=== PATIENT | male | born 1975 | race Caucasian/White ===

== ENCOUNTER 2017-11-15 08:08 | Emergency (ER) | payer BC, SELFPAY ==
[2017-11-15 08:09] VITALS: BP 132/92; PULSE 65; RESP 20; TEMP 36.8; O2SAT 100; BMI 26.6
--- NOTE | 2017-11-15 08:19 | CT_ITS ---
STUDY: CT ABDOMEN AND PELVIS WITHOUT CONTRAST REASON FOR EXAM: Male, 42 years old. LT FLANK PAIN, SUDDEN ONSET, NAUSEA. RADIATION DOSAGE (If Supplied By Facility): CTDIvol = ( 10.79 ) mGy, DLP = ( 555.39 ) mGycm TECHNIQUE: Transaxial images were obtained from the dome of the diaphragm to the symphysis pubis without oral contrast, and without intravenous contrast. Sagittal and coronal images were reconstructed. Individualized dose optimization techniques were used for this CT. COMPARISON: March 22, 2015 FINDINGS: The visualized lung bases are unremarkable. The visualized portions of the heart are within normal limits. Normal liver. The gallbladder is contracted. Normal spleen. Normal pancreas. Normal bilateral adrenal glands. There are up to 3 mm nonobstructing kidney stones on the right. There is mild hydroureteronephrosis on the left. There is a 5 mm calculus at the proximal ureter (axial image #94 series 2). There is 2 mm calculus at the lower pole of the left kidney as well. Normal visualized stomach. Normal small intestine. Normal colon. The appendix is visualized and appears normal. Normal abdominal aorta. Normal inferior vena cava. Normal retroperitoneum. Normal urinary bladder. Normal abdominal wall. Normal osseous structures. CT/Abdomen/Pelvis without Cont IMPRESSION: 5 mm proximal ureteral calculus with mild hydroureteronephrosis on the left. Small bilateral renal calculi. Electronically Signed: Ashly Allen MD at 9:54 EDT Tel , Service support ,
--- NOTE | 2017-11-15 08:19 | ED.VISSUMM ---
- ER Visit Summary Date of Service: 11/15/17 Chief Complaint: Left flank pain History of Present Illness: The patient is a 42 M who states that he was in his normal state of health when he went to work today. He was sitting down began to have a pain in his left flank. He thought it was perhaps a muscle. He felt the urge to have a bowel movement thought it might help. However the pain got worse is now starting to wrap around towards his front. He has a history of a kidney stone in the past which he was able to pass on his own. Denies any hematuria. No fevers. No bloody stools. Patient had prior cholecystectomy. He was feeling very nauseous and sweaty. Physical Examination: Afebrile vital signs stable Gen: Well-nourished well-developed patient appears uncomfortable sitting in the bed Head: Normocephalic atraumatic Eyes: Perrl EOMI ENT: TMs clear no rhinorrhea moist mucous membranes Neck: Supple no lymphadenopathy no JVD nontender CVS: Regular rate rhythm no murmurs normal S1-S2 Respiratory: No distress clear to auscultation bilaterally chest nontender Abdomen: Soft nontender nondistended normal bowel sounds no masses Back: Nontender Extremity: Nontender no edema Skin: Normal color no rash diaphoretic Neuro: alert orientated ?3 CN II-XII intact normal strength sensation reflexes gait cerebellar Psych: Normal affect normal mood Test Results: Urinalysis and CT noncontrasted was obtained. There was some hematuria and a 5 mm proximal ureteral stone with mild hydronephroureter was noted. Emergency Department Course and Treatment: Received IV fluids Toradol and Zofran. His pain is significantly improved. He does not wish to have any prescription for narcotics. I will write a prescription for Toradol Zofran and Flomax. He is to follow-up with urology return if pain is not controlled or has any concerns Impression: 1. Left 5 mm proximal ureteral stone with renal colic 2. Left hydronephroureter This note was generated with [employer] dictation software. It may contain incorrect words, spelling, and punctuation that were not noted in review of the chart prior to signing ED Disposition - Plan for ED Patient: Disposition: Home or Assisted Living Chief Complaint: Flank Pain Instructions: ED Stone Renal W Colic Prescriptions: Ondansetron [Zofran Odt] 4 mg PO Q8H PRN PRN #10 tab PRN Reason: Nausea Ketorolac [Toradol] 10 mg PO Q8H PRN #20 tab PRN Reason: Pain Tamsulosin HCl [Flomax] 0.4 mg PO DAILY #7 cap Referrals: Tracey Martinez MD [STAFF PHYSICIAN] - (call today to arrange follow up)
[2017-11-15] MEDS: Ketorolac 30 MG/ML Syringe IV (08:40)
[2017-11-15] MEDS: Ondansetron 4 MG/2 ML Vial IV (08:40)
[2017-11-15] MEDS: 0.9% Normal Saline 1,000 ML 250 ML IV (08:40)
[2017-11-15 10:05] LABS: White Blood Cells 0 SEEN /hpf (0-5)
[2017-11-15 10:15] LABS: Color, Urine Yellow (Yellow); Glucose, Dipstick Normal (Normal); Ketone-Dipstick Negative (Negative); Leukocyte Esterase-Dipstick Negative /ul (Negative); Nitrite-Dipstick Negative (Negative); Occult Blood-Urine 250 /ul (Negative); Protein-Dipstick 15 mg/dl (Negative); Urine Bilirubin Dipstick Negative (Negative); Urine Clarity Clear (Clear); Urine Urobilinogen Normal (Normal)
[2017-11-15 10:25] LABS: Bacteria RARE /hpf (None Seen); Mucous, Urine 1+ /hpf (<or=2+); Red Blood Cells-Urine 10-25 SEEN /hpf (0-5); Squamous Epithelial Cells - UA 0-5 SEEN /hpf (0-5)
[2017-11-15 11:46] VITALS: BP 151/83; PULSE 69; RESP 15; O2SAT 98
== END 2017-11-15 11:46 | disposition home or self-care (01) ==
PROVIDERS: Emergency Provider Emergency Medicine; Family Provider Family Medicine; PCP Family Medicine
DX: N13.2 Hydronephrosis with renal and ureteral calculous obstruction (principal); Z87.442 Personal history of urinary calculi
CPT/HCPCS: 74176; 81001; 96361; 96374; 96375; 99283; J7030; J2405

== ENCOUNTER → 2017-12-02 15:22 | Outpatient (CLI) | payer BC, SELFPAY | PROVIDERS: Family Provider Family Medicine; PCP Family Medicine; Visit Provider Urology | DX: N39.0 Urinary tract infection, site not specified (principal) | CPT/HCPCS: 87086 ==

== ENCOUNTER → 2017-12-09 15:31 | Outpatient (CLI) | payer BC, SELFPAY | PROVIDERS: Family Provider Family Medicine; PCP Family Medicine; Visit Provider Urology | DX: N20.0 Calculus of kidney (principal) | CPT/HCPCS: 74018 ==

== ENCOUNTER 2020-11-05 03:15 | Emergency (ER) | payer BC, SELFPAY ==
[2020-11-05 03:19] VITALS: BP 168/109; PULSE 77; RESP 14; TEMP 36.8; O2SAT 98; BMI 27.5
[2020-11-05 03:22] VITALS: O2SAT 98
--- NOTE | 2020-11-05 03:33 | CT_ITS ---
STUDY: CTA CHEST REASON FOR EXAM: Male, 45 years old patient is COVID positive. Patient has shortness of breath and cough. RADIATION DOSAGE (If Supplied By Facility): CTDIvol = ( 13.04 ) mGy, DLP = ( 494.43 ) mGycm TECHNIQUE: The examination was performed with the intravenous administration of 100 mL of Isovue-370. Post-processing of the angiographic images was performed, with multiplanar reformation and 3D reconstruction. Individualized dose optimization techniques were used for this CT. COMPARISON: None. FINDINGS: Cardiac monitoring leads are present. Normal enhancement of the main pulmonary artery and right and left pulmonary arteries. Normal enhancement of the bilateral peripheral pulmonary arteries. There is no demonstrated pulmonary embolism. Normal thoracic aorta and visualized great vessels. There is no demonstrated aortic dissection. Normal heart and pericardium. Normal mediastinum. Normal hilar regions. Normal visualized trachea and bronchi. The lungs are well expanded. There is right lower lobe airspace consolidation as well as left lower lobe airspace consolidation consistent with multifocal pneumonia. There is also some subtle peripheral right upper lobe airspace disease. Normal pleura. Normal chest wall structures. Normal osseous structures. Normal visualized upper abdomen. CT/CTA Chest W/WO Contrast IMPRESSION: 1. No CTA demonstrated pulmonary embolism or arterial dissection. 2. Multifocal airspace disease consistent with pneumonia. Electronically Signed: Sanjana Posadas MD at 6:14 EDT , Service support ,
--- NOTE | 2020-11-05 03:34 | EKG12_ITS ---
Test Reason : CP Blood Pressure : / mmHG Vent. Rate : 076 BPM Atrial Rate : 076 BPM P-R Int : 164 ms QRS Dur : 088 ms QT Int : 388 ms P-R-T Axes : 062 047 036 degrees QTc Int : 436 ms Normal sinus rhythm Normal ECG Confirmed by YRN CHAPMAN, DERECK ([id number]), assignment desk editor TALITA LEUNG ([id number]) on 11/06/2020 11:51:25 AM Referred By: Confirmed By:DERECK POOL MD
--- NOTE | 2020-11-05 03:36 | ED.VIS.CHEST ---
HPI History of Present Illness Chief Complaint: Shortness of Breath Informant: patient and spouse/S.O. Narrative Narrative: 45-year-old male presents out of concern for heart attack. He is Covid positive on about day 10. He has been having difficulty sleeping so the gave him what turned out to be 50 mg of Benadryl. About 1 hour and a half prior to examination the patient woke from sleep had a sense of impending doom. [place] short of breath was sweaty. His brother recently had some cardiac events and they were concerned that he might be having a heart attack. At the current time he states he is feeling better but he still feels his heart racing (heart rate in the 70s). Patient currently states that he feels tired. [facility] Medical History Hypertension Home Medications ondansetron 4 mg PO Q8H PRN PRN #10 tab 03/22/15 [Rx Last Taken Unknown] oxycodone-acetaminophen 1 - 2 tab PO Q4H PRN PRN #20 tab 03/22/15 [Rx Last Taken Unknown] oxycodone-acetaminophen 1 - 2 tab PO Q6H PRN PRN #30 tab 03/26/15 [Rx Last Taken Unknown] ketorolac 10 mg PO Q8H PRN #20 tab 11/15/17 [Rx Last Taken Unknown] ondansetron 4 mg PO Q8H PRN PRN #10 tab 11/15/17 [Rx Last Taken Unknown] tamsulosin 0.4 mg PO DAILY #7 cap 11/15/17 [Rx Last Taken Unknown] Allergy/AdvReac Type Severity Reaction Status Date / Time hydrocodone bitartrate AdvReac Vomiting Verified 11/05/20 03:16 [From Vicodin] Surgical History History of cholecystectomy History of tonsillectomy Social History (Updated 11/05/20 @ 03:[address] Atul Mosley DO) Smoking Status: Never smoker substance use type: does not use ROS ROS ED Constitutional Constitutional ED: Denies chills or weight loss Eyes Eyes: Denies change in vision or diplopia ENT ENT ED: Denies ear pain, rhinorrhea or sore throat Cardiovascular Cardiovascular: Denies chest pain, orthopnea, palpitations or racing heartbeat Respiratory/Chest Respiratory/Chest: Reports dyspnea; Denies cough or orthopnea Gastrointestinal Gastrointestinal: Denies abdominal pain, diarrhea, nausea or vomiting Genitourinary Genitourinary ED: Denies dysuria, hematuria or urinary frequency Musculoskeletal Musculoskeletal: Denies arthralgias or myalgias Integumentary Reports other Details: Diaphoresis ; Denies abscess or rash Neurologic Neurologic: Denies headache(s) or weakness Psychiatric Psychiatric: Reports anxiety; Denies depression, suicidal ideation or suicidal thoughts Endocrine Endocrinology: Denies polydipsia, polyphagia or polyuria Allergic/Immunologic Allergic/Immunologic ED: Denies mouth swelling, tongue swelling or urticaria EXAM Physical Exam Const Vital Signs: 11/05/20 03:19 11/05/20 03:22 11/05/20 06:02 Temperature 98.2 F Temperature Source Oral Pulse Rate 77 76 Respiratory Rate 14 14 Respiratory Effort Normal Respiratory Depth Normal Respiratory Pattern Normal Blood Pressure 168/109 H 148/100 H Blood Pressure Mean 128 116 Pulse Ox 98 100 Oxygen Delivery Method Room Air Room Air Room Air Positive well nourished and well developed General Appearance ED: well developed HEENT Reports normocephalic, head/scalp atraumatic and moist mucous membranes Eyes PERRL and EOMs intact bilaterally Neck no lymphadenopathy, supple and no JVD Resp normal respiratory effort and clear to auscultation bilaterally Cardio regular rate, regular rhythm and no murmurs GI normal to inspection, nondistended, normoactive bowel sounds and non-tender Palpation: soft Back/Spine no CVA tenderness and normal ROM Extremity normal to inspection General Extremety ED: Negative for edema General Extremity: Negative for edema Neuro oriented x3 and CN's II-XII intact bilaterally Sensorium / Orientation: alert Motor Exam: strength 5/5 throughout Psych mental status grossly normal Mood & Affect: Negative for depressed or tearful Skin no rashes or lesions noted and no wounds Heart Score History: Slightly/Non-Suspicious ECG: Normal Age: </= 45 years Risk Factors: 1 or 2 Risk Factors Troponin: </= Normal Limit Score: 1 MDM MDM MDM Narrative Medical decision making narrative: EKG is a normal sinus rhythm no concerning features of ACS. White count low at 3.3 consistent with Covid diagnosis. Initial troponin 4.5 delta troponin basically unchanged. CTA of the chest does not demonstrate any pulmonary embolism. Patchy infiltrates consistent with this diagnosis of Covid was noted. No significant effusion seen. Patient's had no events on the monitor. At this point I believe the patient can be safely discharged home. Return if worsening or concerns Lab Data Attestation: I reviewed the patient's lab results. Labs: Laboratory Results - last 24 hr 11/05/20 11/05/20 11/05/20 03:30 03:30 05:30 WBC 3.3 L RBC 4.98 Hgb 14.0 Hct 41.9 MCV 84.1 MCH 28.1 MCHC 33.4 RDW Std Deviation 37.7 RDW Coeff of Jose 12.4 Plt Count 210 MPV 9.8 Immature Gran % (Auto) 0.300 Neut % (Auto) 52.8 Lymph % (Auto) 36.0 [place] % (Auto) 9.1 Eos % (Auto) 1.2 Baso % (Auto) 0.6 Absolute Neuts (auto) 1.8 L Absolute Lymphs (auto) 1.19 Nucleated RBC % 0 Sodium 140 Potassium 3.9 Chloride 106 Carbon Dioxide 28.0 Anion Gap 6 BUN 12 Creatinine 0.90 Estim Creat Clear Calc 102.39 Est GFR (MDRD) Af Amer 118 Est GFR (MDRD) Non-Af 97 BUN/Creatinine Ratio 13.3 Glucose 138 H Calcium 8.5 Total Bilirubin 0.30 AST 24 ALT 27 Alkaline Phosphatase 64 Troponin I High Sens 4.5 4.7 Total Protein 7.3 Albumin 3.6 Globulin 3.7 Albumin/Globulin Ratio 1.0 Radiography Diagnostic Testing: Radiology Impression Chest CTA 11/05/20 03:33 IMPRESSION: 1. No CTA demonstrated pulmonary embolism or arterial dissection. 2. Multifocal airspace disease consistent with pneumonia. Electronically Signed: Sanjana Posadas MD at 6:14 EDT , Service support , EKG Initial EKG: Attestation: I personally reviewed and interpreted this EKG as follows: Comments: EKG demonstrates normal sinus rhythm at a rate of 76 bpm. No concerning features of ACS or ectopy noted Discharge Plan Triage Chief Complaint: Shortness of Breath ED Provider: Choccolocco,Atul Dx/Rx/DC Orders Clinical Impression: COVID-19, Acute dyspnea Instructions: Coronavirus Disease 2019 (COVID-19): Overview Prescriptions: No Action oxycodone-acetaminophen 1 TABLET tablet 1 - 2 tab PO Q4H PRN PRN (Reason: Pain) Qty: 20 RF: 0 ondansetron 4 MG tablet 4 mg PO Q8H PRN PRN (Reason: Nausea) Qty: 10 RF: 0 oxycodone-acetaminophen 1 TABLET tablet 1 - 2 tab PO Q6H PRN PRN (Reason: Pain) Qty: 30 RF: 0 ketorolac 10 MG tablet 10 mg PO Q8H PRN (Reason: Pain) Qty: 20 RF: 0 tamsulosin 0.4 MG capsule 0.4 mg PO DAILY Qty: 7 RF: 0 ondansetron 4 MG tablet 4 mg PO Q8H PRN PRN (Reason: Nausea) Qty: 10 RF: 0 Primary Care Provider: Jack Brand Referrals: Jack Brand MD [Primary Care Provider] - As Needed Disposition Disposition: Home, Self Care
[2020-11-05 03:40] LABS: Absolute Lymphocyte Count 1.19 X10^3/uL (0.83-4.51); Absolute Neutrophil Count 1.8 X10^3/uL (2.0-7.7); Basophil# 0.02 X10^3/uL; Basophil% 0.6 % (0-1); Eosinophil# 0.04 X10^3/uL; Eosinophils% 1.2 % (0-5); Hematocrit 41.9 % (40-54); Lymphocyte # 1.19 X10^3/ul (0.83-4.51); Mean Corp Hgb Conc 33.4 g/dL (32-36); Mean Corpuscular Hgb 28.1 pg (27.0-32.0); Mean Corpuscular Volume 84.1 fL (80-94); Mean Platelet Vol. 9.8 fl (6.2-12.0); Monocyte% 9.1 % (0-10); NRBC Flagged by Analyzer 0 % (0-5); Neutrophil # 1.75 X10^3/uL (2.7-7.7); Neutrophil % 52.8 % (47-70); Platelet Count 210 K/mm3 (150-450); RBC Distribution Width CV 12.4 % (11.6-14.6); RBC Distribution Width SD 37.7 fl (35.1-43.9); Red Blood Count 4.98 M/mm3 (4.6-6.2); White Blood Count 3.3 K/mm3 (4.4-11.0)
[2020-11-05] MEDS: 0.9% Normal Saline 1,000 ML 1000 ML IV (03:40)
[2020-11-05 04:08] LABS: AST(SGOT) 24 U/L (15-37); Alanine Aminotransfer ALT/SGPT 27 U/L (16-61); Albumin, Serum 3.6 g/dL (3.2-5.0); Alkaline Phosphatase 64 U/L (45-117); Anion Gap 6 (5-15); BUN 12 mg/dL (7-18); BUN/Creat Ratio 13.3 RATIO (10-20); Calcium,Total 8.5 mg/dL (8.5-10.1); Chloride 106 mmol/L (98-107); EST Glomerular Filtration Rate 97 mL/min (>60); Est Glom Filt Rate - Afr Amer 118 mL/min (>60); Estimated Creatinine Clearance 102.39 ml/min; Globulin 3.7 g/dL (2.2-4.2); Glucose 138 mg/dL (74-106); Potassium 3.9 mmol/L (3.5-5.1); Protein, Total 7.3 g/dL (6.4-8.2); Sodium Level 140 mmol/L (136-145); Troponin-I HS 4.5 pg/mL (3.0-78.5)
[2020-11-05 05:56] LABS: Troponin-I HS 4.7 pg/mL (3.0-78.5)
[2020-11-05 06:02] VITALS: BP 148/100; PULSE 76; RESP 14; O2SAT 100
== END 2020-11-05 06:37 | disposition home or self-care (01) ==
PROVIDERS: Emergency Provider Emergency Medicine; PCP Family Medicine
DX: U07.1 COVID-19 (principal); I10 Essential (primary) hypertension; Z79.899 Other long term (current) drug therapy
CPT/HCPCS: 71275; 80053; 84484; 85025; 93005; 96360; 96361; 99283; J7030; Q9967; A4216

== ENCOUNTER 2024-01-03 06:19 | Emergency (ER) | payer OTHER, SELFPAY ==
[2024-01-03 06:20] VITALS: BP 194/114; PULSE 60; RESP 18; TEMP 36.4; O2SAT 100; BMI 28.7
--- NOTE | 2024-01-03 06:30 | CT_ITS ---
INDICATION: Right lower quadrant pain EXAMINATION: CT Abdomen And Pelvis W/ Contrast Injection TECHNIQUE: Helically acquired images were obtained of the abdomen and pelvis with sagittal and coronal reconstructed images. Individualized dose optimization techniques were used for this CT. IV contrast dosage and agent: 100 mL of Isovue-370. Oral contrast: None. COMPARISON: 03/22/2015 CT. FINDINGS: VESSELS: No abdominal aortic aneurysm or dissection. LIVER: No evidence of a mass. No intrahepatic or extrahepatic biliary duct dilation. GALLBLADDER: Not visualized. PANCREAS: No focal solid or cystic mass. No evidence of pancreatitis. SPLEEN: Normal. ADRENAL GLANDS: Normal. KIDNEYS AND URETERS: Bilateral renal stones. Simple left renal cyst with no follow-up recommended. Mild right hydronephrosis and hydroureter. 4 mm stone in the distal right ureter. URINARY BLADDER: Unremarkable. BOWEL: No evidence of diverticulosis or diverticulitis. Appendix appears normal. No evidence of bowel obstruction. REPRODUCTIVE ORGANS: No evidence of a pelvic mass. PERITONEUM: No intraabdominal free fluid or free air. LYMPH NODES: No pathologically enlarged mesenteric or retroperitoneal lymph nodes. ABDOMINAL WALL: No abdominal or pelvic wall hernia. BONES: No acute abnormality. LOWER CHEST: Visualized lung bases are unremarkable. CT/Abdomen/Pelvis W IV Cont ONLY IMPRESSION: 4 mm stone in the distal right ureter with mild right hydronephrosis. Electronically Signed: Vu Roman DO at 7:44 EDT ,
--- NOTE | 2024-01-03 06:30 | EDS_ITS ---
HPI HPI - GI History of Present Illness Chief Complaint: Abd Pain Narrative Narrative: 48-year-old male with past medical history of borderline hypertension, does not take medication, presents with his because of right lower quadrant/right flank pain that began this morning at 4 AM, about 2-1/2 hours ago. He states he got up and was getting ready for work. He started having right flank pain and right lower quadrant pain. He mated all the way to work, but his pain intensified so he left. States he spit up a bit and vomited afterwards. Past surgical history does include cholecystectomy. He denies fevers or chills, no exacerbating or alleviating factors. States he feels like he has his gut in a knot. No exacerbating or alleviating factors. He did mention a later that he has history of kidney stones but it has been years, and he did have dark or possibly bloody urine about a week ago. [facility] Medical History Hypertension Allergy/AdvReac Type Severity Reaction Status Date / Time hydrocodone bitartrate (From AdvReac Vomiting Verified 01/03/24 06:20 Vicodin) Surgical History History of cholecystectomy History of tonsillectomy Social History Smoking Status: Never smoker substance use type: does not use ROS ROS ED ROS Narrative Constitutional: No fever, no chills. Cardiovascular: No chest pain. No palpitations. Respiratory: No cough, no shortness of breath. Abdominal: Right flank to right lower quadrant abdominal pain. Positive nausea and vomiting. No problems with bowel movements. No diarrhea. Genitourinary: No dysuria. No hematuria. Musculoskeletal: No myalgias. No arthralgias. Neurologic: No headaches. No dizziness. No lightheadedness. EXAM Physical Exam Narrative Exam Narrative: Afebrile. Vital signs noted. Regular rate and rhythm. Lungs are clear to au scultation bilaterally. Abdomen is soft with mild tenderness palpation and right lower quadrant and right flank. Negative Rovsing sign. Positive bowel sounds. Neurological examination nonfocal and on lateral lysing. Const Vital Signs: 01/03/24 06:20 Temperature 97.6 F L Temperature Source Temporal Pulse Rate 60 Respiratory Rate 18 Blood Pressure 194/114 H Blood Pressure Mean 140 Pulse Ox 100 Oxygen Delivery Method Room Air MDM MDM MDM Narrative Medical decision making narrative: Differential diagnosis includes but not limited to acute appendicitis versus diverticulitis versus ureterolithiasis versus colitis versus musculoskeletal abdominal pain versus nonspecific abdominal pain. History and physical does not necessarily support diverticulitis. Patient states that he has an intolerance to hydrocodone and vomiting and he has to have nausea medication with it. He was bolused normal saline 1 L intravenously and administered morphine and ondansetron. CBC, CMP, lipase, and urinalysis were obtained as well as CT imaging with IV contrast of the abdomen and pelvis. I reviewed the laboratory work that has returned thus far and he has a normal w alden count of 8.6 with hemoglobin normal at 14.8, hematocrit 44.6, platelet count normal at 219. CMP, urinalysis, and CT results are currently pending. Upon return from CT scan, patient had sudden onset of increased pain, and on my review it appears he probably has hydronephrosis and ureterolithiasis. I ordered Toradol and another dose of Zofran for his nausea. At this point in time, patient will be signed out to the oncoming physician to check the remaining laboratories, check the CT scan results, reassess the patient, and make final disposition. Patient is in stable condition. Lab Data Labs: Laboratory Results - last 24 hr 01/03/24 06:24 WBC 8.6 RBC 5.24 Hgb 14.8 Hct 44.6 MCV 85.1 MCH 28.2 MCHC 33.2 RDW Std Deviation 39.4 RDW Coeff of Jose 12.9 Plt Count 219 MPV 9.3 Immature Gran % (Auto) 0.800 Neut % (Auto) 75.3 H Lymph % (Auto) 16.1 L [place] % (Auto) 6.1 Eos % (Auto) 1.1 Baso % (Auto) 0.6 Absolute Neuts (auto) 6.5 Absolute Lymphs (auto) 1.38 Nucleated RBC % 0 Sodium 138 Potassium 3.9 Chloride 105 Carbon Dioxide 25.0 Anion Gap 8 BUN 15 Creatinine 1.19 Estim Creat Clear Calc 82.59 Est GFR (MDRD) Af Amer 85 Est GFR (MDRD) Non-Af 70 BUN/Creatinine Ratio 12.6 Glucose 149 H Calcium 9.2 Total Bilirubin 0.40 AST 15 ALT 28 Alkaline Phosphatase 55 Total Protein 7.4 Albumin 3.9 Globulin 3.5 Albumin/Globulin Ratio 1.1 Lipase 38 Discharge Plan Triage Chief Complaint: Abd Pain ED Provider: Pacheco Garcia Dx/Rx/DC Orders Primary Care Provider: Jack Brand Referrals: Jack Brand MD [Primary Care Provider] - Print Language: Ukrainian
[2024-01-03 06:36] LABS: Absolute Lymphocyte Count 1.38 X10^3/uL (0.83-4.51); Absolute Neutrophil Count 6.5 X10^3/uL (2.0-7.7); Basophil# 0.05 X10^3/uL; Basophil% 0.6 % (0-1); Eosinophil# 0.09 X10^3/uL; Eosinophils% 1.1 % (0-5); Hematocrit 44.6 % (40-54); Hemoglobin 14.8 g/dL (13.0-16.5); Lymphocyte # 1.38 X10^3/ul (0.83-4.51); Lymphocyte % 16.1 % (19-41); Mean Corp Hgb Conc 33.2 g/dL (32-36); Mean Corpuscular Hgb 28.2 pg (27.0-32.0); Mean Corpuscular Volume 85.1 fL (80-94); Mean Platelet Vol. 9.3 fl (6.2-12.0); Monocyte# 0.52 X10^3/uL; Monocyte% 6.1 % (0-10); NRBC Flagged by Analyzer 0 % (0-5); Neutrophil # 6.45 X10^3/uL (2.7-7.7); Neutrophil % 75.3 % (47-70); Platelet Count 219 K/mm3 (150-450); RBC Distribution Width CV 12.9 % (11.6-14.6); RBC Distribution Width SD 39.4 fl (35.1-43.9); Red Blood Count 5.24 M/mm3 (4.6-6.2); White Blood Count 8.6 K/mm3 (4.4-11.0)
[2024-01-03] MEDS: 0.9% Normal Saline (1000mL) 1,000 ML 999 ML IV (06:36)
[2024-01-03] MEDS: Morphine 4 MG/ML Syringe IV (06:36)
[2024-01-03] MEDS: Ondansetron 4 MG/2 ML Vial IV ×2 (06:36→07:17)
[2024-01-03 06:58] LABS: ALB/GLOB Ratio 1.1 RATIO (0.9-2.4); AST(SGOT) 15 U/L (15-37); Alanine Aminotransfer ALT/SGPT 28 U/L (16-61); Albumin, Serum 3.9 g/dL (3.2-5.0); Alkaline Phosphatase 55 U/L (45-117); Anion Gap 8 (5-15); BUN 15 mg/dL (7-18); BUN/Creat Ratio 12.6 RATIO (10-20); Calcium,Total 9.2 mg/dL (8.5-10.1); Chloride 105 mmol/L (98-107); Creatinine, Serum 1.19 mg/dL (0.70-1.30); EST Glomerular Filtration Rate 70 mL/min (>60); Est Glom Filt Rate - Afr Amer 85 mL/min (>60); Estimated Creatinine Clearance 82.59 ml/min; Globulin 3.5 g/dL (2.2-4.2); Glucose 149 mg/dL (74-106); Lipase 38 U/L (13-75); Potassium 3.9 mmol/L (3.5-5.1); Protein, Total 7.4 g/dL (6.4-8.2); Sodium Level 138 mmol/L (136-145)
[2024-01-03] MEDS: Ketorolac 30 MG/ML Syringe IV (07:16)
[2024-01-03 07:18] LABS: Bacteria 0 SEEN /hpf (None Seen); Mucous, Urine 0 SEEN /hpf (<or=2+); Squamous Epithelial Cells - UA 0 SEEN /hpf (0-5); White Blood Cells 0 SEEN /hpf (0-5)
[2024-01-03 07:42] LABS: Color, Urine Yellow (Yellow); Glucose, Dipstick Normal (Normal); Ketone-Dipstick Negative (Negative); Leukocyte Esterase-Dipstick Negative /ul (Negative); Nitrite-Dipstick Negative (Negative); Occult Blood-Urine 250 /ul (Negative); Protein-Dipstick 15 mg/dl (Negative); Specific Gravity, Urine 1.015 (1.002-1.030); Urine Bilirubin Dipstick Negative (Negative); Urine Clarity Clear (Clear); Urine Urobilinogen Normal (Normal)
[2024-01-03 08:07] LABS: Red Blood Cells-Urine 25-50 SEEN /hpf (0-5)
[2024-01-03 08:19] VITALS: BP 145/86; PULSE 74; RESP 18; O2SAT 98
[2024-01-03 08:42] VITALS: BP 145/86; PULSE 74; RESP 18; TEMP 36.5; O2SAT 98
== END 2024-01-03 08:43 | disposition home or self-care (01) ==
PROVIDERS: Emergency Provider Emergency Medicine; PCP Family Medicine; Visit Provider Emergency Medicine
DX: R10.31 Right lower quadrant pain (principal); I10 Essential (primary) hypertension; Z90.49 Acquired absence of other specified parts of digestive tract
CPT/HCPCS: 74177; 80053; 81001; 83690; 85025; 96361; 96374; 96375; 96376; 99283; J7030; Q9967; A4216; J2405